=== PATIENT | female | born 1960 | race Native Hawaiian/Other Pacific Islander ===

== ENCOUNTER → 2017-03-04 | Outpatient (CLI) | payer OTHER ==
--- NOTE | 2017-03-05 10:19 | MM ---
Reason for exam: screening (asymptomatic). Last mammogram was performed 1 year ago. History: Patient is postmenopausal. Physical Findings: A clinical breast exam by your physician is recommended on an annual basis and results should be correlated with mammographic findings. MG Screening Mammo w CAD Bilateral CC and MLO view(s) were taken. Prior study comparison: February 27, 2016, bilateral MG screening mammo w CAD. February 21, 2015, bilateral MG screening mammo w CAD. There are scattered fibroglandular densities. No suspicious abnormality. No significant changes when compared with prior studies. ASSESSMENT: Negative, BI-RAD 1 RECOMMENDATION: Routine screening mammogram of both breasts in 1 year.
== END | disposition home or self-care (01) ==
LOC: RADMAMWWP 16:39
PROVIDERS: ATTEND Family Medicine
DX: Z12.31 Encounter for screening mammogram for malignant neoplasm of breast (principal)

== ENCOUNTER → 2018-04-22 | Outpatient (CLI) | payer OTHER ==
--- NOTE | 2018-04-22 16:33 | US ---
EXAMINATION TYPE: US axilla RT DATE OF EXAM: 04/22/2018 COMPARISON: NONE CLINICAL HISTORY: R59.0 Enlarged Lymph Nodes. Pt states palpable lump right axilla that has decreased in size since taking antibiotics x 10 days No abnormality could be appreciated within right axilla where pt feels palpable IMPRESSION: 1. Negative ultrasound at the palpable abnormality. Clinical management would be recommended.
== END ==
LOC: RADUSWWP 11:12
PROVIDERS: ATTEND Family Medicine
DX: R59.0 Localized enlarged lymph nodes (principal)

== ENCOUNTER → 2019-08-11 | Outpatient (CLI) | payer OTHER ==
--- NOTE | 2019-08-14 13:12 | MM ---
Reason for exam: screening (asymptomatic). Last mammogram was performed 2 years and 5 months ago. History: Patient is postmenopausal. Physical Findings: A clinical breast exam by your physician is recommended on an annual basis and results should be correlated with mammographic findings. MG Screening Mammo w CAD Bilateral CC and MLO view(s) were taken. Prior study comparison: March 04, 2017, bilateral MG screening mammo w CAD. February 27, 2016, bilateral MG screening mammo w CAD. There are scattered fibroglandular densities. There is no discrete abnormality. No significant changes when compared with prior studies. ASSESSMENT: Negative, BI-RAD 1 RECOMMENDATION: Routine screening mammogram of both breasts in 1 year.
== END | disposition home or self-care (01) ==
LOC: RADMAMWWP 13:07
PROVIDERS: ATTEND Family Medicine
DX: Z12.31 Encounter for screening mammogram for malignant neoplasm of breast (principal)
CPT/HCPCS: 77067

== ENCOUNTER 2020-08-28 06:40 | Day surgery (SDC) | payer OTHER ==
[2020-08-27 08:43] VITALS: BMI 36.3
[~2020-08-28 06:40] MED LIST: LACTATED RINGERS 1,000 ML IV SCH; LIDOCAINE 1% (10MG/ML) FOR IV START INTRADERMA PRN
[2020-08-28 07:33] VITALS: RESP 16; TEMP 97
[2020-08-28 07:55] LABS: Glucose,Whole Blood 128 mg/dL (75-99)
[2020-08-28] MEDS ORDERED: PROPOFOL 10 MG/ML 20 ML VIAL IV ONE (08:15)
--- NOTE | 2020-08-28 08:30 | P.PCN ---
Date of Procedure: 08/28/20 Procedure(s) Performed: BRIEF HISTORY: Patient is a 60-year-old pleasant white female scheduled for an elective colonoscopy as a part of screening for colorectal neoplasia PROCEDURE PERFORMED: Colonoscopy. PREOPERATIVE DIAGNOSIS: Screening for colon cancer. IV sedation per Anesthesia. PROCEDURE: After informed consent was obtained, the patient, was brought into the endoscopy unit. IV sedation was administered by Anesthesia under continuous monitoring. Digital rectal examination was normal. Initially the Olympus CF-160 flexible video colonoscope was then inserted in the rectum, gradually advanced into the cecum without any difficulty. Careful examination was performed as the scope was gradually being withdrawn. Ileocecal valve and the appendiceal orifice were visualized and appeared normal. Prep was excellent. Mucosa of the cecum, ascending colon, transverse colon, descending colon, sigmoid colon, and rectum appeared normal. Retroflexion was performed in the rectum and no lesions were seen. The patient tolerated the procedure well. IMPRESSION: Normal-appearing colon from rectum to cecum with no evidence of colorectal neoplasia.. RECOMMENDATIONS: Findings of this examination were discussed with the patient as well as her family. She was advised to have a repeat screening colonoscopy in 10 years
[2020-08-28 08:51] VITALS: BP 130/84; PULSE 63
== END 2020-08-28 09:07 | disposition home or self-care (01) ==
LOC: ORWHC2ENDO 06:40
PROVIDERS: ATTEND Internal Medicine Gastroenterology
DX: Z12.11 Encounter for screening for malignant neoplasm of colon (principal); I10 Essential (primary) hypertension; E78.5 Hyperlipidemia, unspecified; E11.9 Type 2 diabetes mellitus without complications; F41.9 Anxiety disorder, unspecified; Z79.899 Other long term (current) drug therapy; Z79.4 Long term (current) use of insulin; Z88.0 Allergy status to penicillin; Z88.2 Allergy status to sulfonamides; Z79.82 Long term (current) use of aspirin; Z98.890 Other specified postprocedural states; Z90.49 Acquired absence of other specified parts of digestive tract
CPT/HCPCS: J2704; G0121; 45378

== ENCOUNTER → 2021-03-20 | Outpatient (CLI) | payer OTHER ==
--- NOTE | 2021-03-24 11:00 | MM ---
Reason for exam: screening (asymptomatic). Last mammogram was performed 1 year and 7 months ago. History: Patient is postmenopausal. Physical Findings: A clinical breast exam by your physician is recommended on an annual basis and results should be correlated with mammographic findings. MG Screening Mammo w CAD Bilateral CC and MLO view(s) were taken. Prior study comparison: August 11, 2019, bilateral MG screening mammo w CAD. March 04, 2017, bilateral MG screening mammo w CAD. February 27, 2016, bilateral MG screening mammo w CAD. There are scattered fibroglandular densities. No significant changes when compared with prior studies. ASSESSMENT: Benign, BI-RAD 2 RECOMMENDATION: Routine screening mammogram of both breasts in 1 year.
== END | disposition home or self-care (01) ==
LOC: RADMAMWWP 14:35
PROVIDERS: ATTEND Family Medicine
DX: Z12.31 Encounter for screening mammogram for malignant neoplasm of breast (principal)
CPT/HCPCS: 77067

== ENCOUNTER → 2023-07-23 | Outpatient (CLI) | payer OTHER ==
--- NOTE | 2023-07-26 08:59 | MM ---
Reason for Exam: Screening (asymptomatic). Last mammogram was performed 2 year(s) and 5 month(s) ago. Patient History: Menarche at age 8. First Full-Term at age 28. Postmenopausal. Risk Values: Judith 5 year model risk: 2.0%. NCI Lifetime model risk: 7.9%. Prior Study Comparison: 03/04/2017 Bilateral Screening Mammogram, [facility]. 08/11/2019 Bilateral Screening Mammogram, [facility]. 03/20/2021 Bilateral Screening Mammogram, [facility]. Tissue Density: There are scattered fibroglandular densities. Findings: Analyzed By CAD. Grouped calcifications in the posterior upper inner left breast. No architectural distortion or dominant mass. Overall Assessment: Incomplete: need additional imaging evaluation, BI-RAD 0 Management: Special View Mammogram of the left breast. . Patient should continue monthly self-breast exams. A clinical breast exam by your physician is recommended on an annual basis. This exam should not preclude additional follow-up of suspicious palpable abnormalities. Note on Judith scores and lifetime risk: 1. A Judith score greater than 3% is considered moderate risk. If this is the case, consider specialist referral to assess eligibility for a risk reducing agent. 2. If overall lifetime risk for the development of breast cancer is 20% or higher, the patient may qualify for future screening with alternating mammogram and breast MRI. Electronically signed and approved by: Blair Trujillo M.D. Radiologis
== END | disposition home or self-care (01) ==
LOC: RADMAMWWP 14:01
PROVIDERS: ATTEND Family Medicine
DX: Z12.31 Encounter for screening mammogram for malignant neoplasm of breast (principal); Z78.0 Asymptomatic menopausal state
CPT/HCPCS: 77067

== ENCOUNTER → 2023-07-30 | Outpatient (CLI) | payer OTHER ==
--- NOTE | 2023-07-30 10:21 | MM ---
Reason for Exam: Follow-up at short interval from prior study. Last screening mammogram was performed less than 1 month ago. Patient History: Menarche at age 8. First Full-Term at age 28. Postmenopausal. Risk Values: Judith 5 year model risk: 2.0%. NCI Lifetime model risk: 7.9%. Prior Study Comparison: 08/11/2019 Bilateral Screening Mammogram, [facility]. 03/20/2021 Bilateral Screening Mammogram, [facility]. 07/23/2023 Bilateral MG screening mammo w CAD, [facility]. Tissue Density: Left: There are scattered fibroglandular densities. Findings: Analyzed By CAD. Benign coarse and punctate calcifications noted left breast. No suspicious clusters seen. Overall Assessment: Benign, BI-RAD 2 Management: Screening Mammogram of both breasts in 1 year. . Results were given to the patient verbally at the time of exam. Patient should continue monthly self-breast exams. A clinical breast exam by your physician is recommended on an annual basis. This exam should not preclude additional follow-up of suspicious palpable abnormalities. Note on Judith scores and lifetime risk: 1. A Judith score greater than 3% is considered moderate risk. If this is the case, consider specialist referral to assess eligibility for a risk reducing agent. 2. If overall lifetime risk for the development of breast cancer is 20% or higher, the patient may qualify for future screening with alternating mammogram and breast MRI. Electronically signed and approved by: Jose Alejandro Jolley M.D. Radiologis
== END | disposition home or self-care (01) ==
LOC: RADMAMWWP 09:43
PROVIDERS: ATTEND Family Medicine
DX: R92.8 Other abnormal and inconclusive findings on diagnostic imaging of breast (principal); Z78.0 Asymptomatic menopausal state
CPT/HCPCS: 77065; G0279; 77061

== ENCOUNTER 2023-08-28 11:44 | Emergency (ER) | payer OTHER ==
--- NOTE | 2023-08-28 12:16 | ED ---
General Adult HPI - General Chief complaint: Extremity Injury, Upper Stated complaint: Hand injury Time Seen by Provider: 08/28/23 11:59 Source: patient, RN notes reviewed Mode of arrival: ambulatory Limitations: no limitations - History of Present Illness Initial comments: 63-year-old female presents to the emergency department for evaluation of left h and injury. Patient states that she was feeding her chickens when she slipped in the mud causing her to fall onto her outstretched left hand. She reports pain to the third and fourth digits of the left hand with pain at the wrist as well. She states that she fell backwards onto her bottom. She denies any other injury, back pain. She has been ambulating without limitation. Denies head injury, blood thinners. - Related Data Home Medications Medication Instructions Recorded Confirmed Albuterol Inhaler [Ventolin 2 puff INHALATION Q4HR PRN 10/29/13 08/28/20 Inhaler] PARoxetine HCL [Paxil] 20 mg PO DAILY 10/29/13 08/27/20 Simvastatin [Zocor] 40 mg PO HS 10/29/13 08/27/20 lisinopriL [Zestril] 20 mg PO DAILY 10/29/13 08/27/20 Aspirin [Adult Low Dose Aspirin EC] 81 mg PO DIRECTED 08/27/20 08/27/20 Ergocalciferol (Vitamin D2) 50 mcg PO DAILY 08/27/20 08/27/20 [Vitamin D2 (2000 Iu)] Insulin NPH/Reg Insulin 70/30 25 unit SQ W/SUPPER 08/27/20 08/27/20 [humuLIN 70/30 VIAL] Insulin NPH/Reg Insulin 70/30 60 unit SQ W/BRKFST 08/27/20 08/27/20 [humuLIN 70/30 VIAL] Montelukast Sodium [Singulair] 10 mg PO HS 08/27/20 08/27/20 Pioglitazone [Actos] 15 mg PO DAILY 08/27/20 08/27/20 metFORMIN HCL [Glucophage] 500 mg PO W/LUNCH 08/27/20 08/27/20 Allergies Allergy/AdvReac Type Severity Reaction Status Date / Time Penicillins Allergy Rash/Hives Verified 08/28/23 11:58 Sulfa (Sulfonamide Allergy Anaphylaxis Verified 08/28/23 11:58 Antibiotics) Review of Systems ROS Statement: Those systems with pertinent positive or pertinent negative responses have been documented in the HPI. ROS Other: All systems not noted in ROS Statement are negative. Past Medical History Past Medical History: Diabetes Mellitus, Hyperlipidemia, Hypertension History of Any Multi-Drug Resistant Organisms: None Reported Past Surgical History: Section, Cholecystectomy Additional Past Surgical History / Comment(s): colonoscopy, biopsy of lymph node Past Anesthesia/Blood Transfusion Reactions: No Reported Reaction Past Psychological History: Anxiety Smoking Status: Never smoker Past Alcohol Use History: None Reported Past Drug Use History: None Reported - Past Family History Mother Family Medical History: No Reported History General Exam Limitations: no limitations General appearance: alert, in no apparent distress Head exam: Present: atraumatic, normocephalic, normal inspection Eye exam: Present: normal appearance, PERRL, EOMI. Absent: scleral icterus, conjunctival injection, periorbital swelling Neck exam: Present: normal inspection. Absent: tenderness, meningismus, lymphadenopathy Respiratory exam: Present: normal lung sounds bilaterally. Absent: respiratory distress, wheezes, rales, rhonchi, stridor Cardiovascular Exam: Present: regular rate, normal rhythm, normal heart sounds. Absent: systolic murmur, diastolic murmur, rubs, gallop, clicks Extremities exam: Present: tenderness, normal capillary refill, other (radial pulses 2+, ecchymosis to left 2nd and 3rd digits of the hand). Absent: full ROM Neurological exam: Present: alert, oriented X3 Psychiatric exam: Present: normal affect, normal mood Skin exam: Present: warm, dry, intact, other (Ecchymosis to volar aspect of the second and third digits of the left hand.). Absent: normal color Course Vital Signs 08/28/23 08/28/23 11:53 13:10 Temperature 97.6 F 98.2 F Pulse Rate 78 74 Respiratory 18 18 Rate Blood Pressure 174/88 166/84 O2 Sat by Pulse 96 Oximetry Procedures - Orthopedic Splinting/Casting Injury #1 Side: left Upper Extremity Immobilizer: volar splint Medical Decision Making - Medical Decision Making Was pt. sent in by a medical professional or institution (, PA, MANAGER BUSINESS INFORMATION, urgent care, hospital, or retirement...) When possible be specific @ -No Did you speak to anyone other than the patient for history (EMS, parent, family, police, friend...)? What history was obtained from this source @ -No Did you review nursing and triage notes (agree or disagree)? Why? @ -I reviewed and agree with nursing and triage notes Were old charts reviewed (outside hosp., previous admission, EMS record, old EKG, old radiological studies, urgent care reports/EKG's, retirement records)? Report findings @ -No old charts were reviewed Differential Diagnosis (chest pain, altered mental status, abdominal pain women, abdominal pain men, vaginal bleeding, weakness, fever, dyspnea, syncope, headache, dizziness, GI bleed, back pain, seizure, CVA, palpatations, mental health, musculoskeletal)? @ -Differential Musculoskeletal Muscular strain, contusion, ligament sprain, fracture, arthritis, septic arthritis, bursitis, cellulitis, muscle spasm, nerve compression, DVT, arterial occlusion, herpes zoster, electrolyte abnormality, tumor.... This is not meant to be in all inclusive list EKG interpreted by me (3pts min.). @ -None X-rays interpreted by me (1pt min.). @ -X-ray of the left hand and wrist show oblique lucency of the shaft of the third middle phalanx, widening of the scapholunate interval CT interpreted by me (1pt min.). @ -None done U/S interpreted by me (1pt. min.). @ -None done What testing was considered but not performed or refused? (CT, X-rays, U/S, labs)? Why? @ -None What meds were considered but not given or refused? Why? @ -None Did you discuss the management of the patient with other professionals (professionals i.e. , PA, MANAGER BUSINESS INFORMATION, lab, RT, psych nurse, social work supervisor, travel physical therapist, teacher, chief security and safety officer, corrections caseworker)? Give summary @ -No Was smoking cessation discussed for >3mins.? @ -No Was critical care preformed (if so, how long)? @ -No Were there social determinants of health that impacted care today? How? (Homelessness, low income, unemployed, alcoholism, drug addiction, transportation, low edu. Level, literacy, decrease access to med. care, skilled nursing, rehab)? @ -No Was there de-escalation of care discussed even if they declined (Discuss DNR or withdrawal of care, Hospice)? DNR status @ -No What co-morbidities impacted this encounter? (DM, HTN, Smoking, COPD, CAD, Cancer, CVA, ARF, Chemo, Hep., AIDS, mental health diagnosis, sleep apnea, morbid obesity)? @ -None Was patient admitted / discharged? Hospital course, mention meds given and rou te, prescriptions, significant lab abnormalities, going to OR and other pertinent info. @ -Discharged. Patient presented to the emergency department for evaluation of left wrist and hand injury from a fall. X-rays obtained which show a lucency to the shaft of the third middle phalanx and widening of the scapholunate interval at 2 mm. Patient placed in a volar splint to the fingertips. Neurovascular intact post splint. Advised to rest, ice, elevate and follow-up with orthopedics. Patient understanding agreeable with plan. Patient stable at time of discharge. Case discussed with Dr. Lee Undiagnosed new problem with uncertain prognosis? @ -No Drug Therapy requiring intensive monitoring for toxicity (Heparin, Nitro, Insulin, Cardizem)? @ -No Were any procedures done? @ -Splint Diagnosis/symptom? @ -Fracture of the third middle phalanx of the left hand Acute, or Chronic, or Acute on Chronic? @ -Acute Uncomplicated (without systemic symptoms) or Complicated (systemic symptoms)? @ -uncomplicated Side effects of treatment? @ -No Exacerbation, Progression, or Severe Exacerbation? @ -No Poses a threat to life or bodily function? How? (Chest pain, [place], [place], pneumonia, PE, COPD, DKA, ARF, appy, cholecystitis, CVA, Diverticulitis, Homicidal, Suicidal, threat to staff... and all critical care pts) @ -No Disposition Clinical Impression: Fracture of finger of left hand Disposition: HOME SELF-CARE Condition: Stable Instructions (If sedation given, give patient instructions): Finger Fracture (ED) Additional Instructions: Please follow-up with orthopedics. Rest, ice, elevate. Utilize Tylenol and Motrin for pain. Return to the emergency department for new or worsening symptoms. Is patient prescribed a controlled substance at d/c from ED?: No Referrals: Natalie Hidalgo MD [Primary Care Provider] - 1-2 days Chastity Leigh DO [Doctor of Osteopathic Medicine] - 1-2 days
[2023-08-28 12:17] VITALS: RESP 18
[2023-08-28] MEDS: ACETAMINOPHEN TAB 325 MG TAB PO STA (12:23)
[2023-08-28] MEDS: IBUPROFEN 600 MG TAB PO STA (12:23)
--- NOTE | 2023-08-28 12:29 | XR ---
EXAMINATION TYPE: XR wrist complete 4 views LT, XR hand complete 3 views LT DATE OF EXAM: 08/28/2023 COMPARISON: NONE HISTORY: 63-year-old female pain after fall FINDINGS: Left wrist: Borderline scapholunate interval at 2 mm. Otherwise, the radiocarpal and distal radioulnar joint as i n mid carpal compartment appear intact. No acute fracture, subluxation, dislocation. Hand: Osteopenia. There is an obliquely oriented lucency through the shaft of the third middle phalanx sugg esting an age indeterminate injury given the lack of overlying soft tissue swelling. Mild degenerativ e change first CMC joint. There is some soft tissue swelling along the dorsal aspect of the distal me tacarpals. No displaced fracture otherwise seen. IMPRESSION: 1. Wrist: Borderline widening of the scapholunate interval at 2 mm. Correlate for age indeterminate s capholunate ligament sprain. 2. Hand: Oblique lucency involving the shaft of the third middle phalanx. Correlate for any point ten derness and history of old fracture here given the lack of associated soft tissue swelling. Some dors al soft tissue swelling overlying the distal metacarpals.
[2023-08-28 13:19] VITALS: BP 166/84; PULSE 74; TEMP 98.2
== END 2023-08-28 13:13 | disposition home or self-care (01) ==
LOC: EC 11:44
DX: S62.603A Fracture of unspecified phalanx of left middle finger, initial encounter for closed fracture (principal); I10 Essential (primary) hypertension; E11.9 Type 2 diabetes mellitus without complications; E78.5 Hyperlipidemia, unspecified; F41.9 Anxiety disorder, unspecified; Z79.84 Long term (current) use of oral hypoglycemic drugs; Z79.4 Long term (current) use of insulin; Z79.82 Long term (current) use of aspirin; Z79.899 Other long term (current) drug therapy; Z88.0 Allergy status to penicillin; Z88.2 Allergy status to sulfonamides; Z90.49 Acquired absence of other specified parts of digestive tract; W01.0XXA Fall on same level from slipping, tripping and stumbling without subsequent striking against object, initial encounter
CPT/HCPCS: 29125; 99283

== ENCOUNTER → 2024-02-03 | Outpatient (CLI) | payer OTHER | END | disposition home or self-care (01) | LOC: LABPRL 12:00 | PROVIDERS: ATTEND Family Medicine | DX: I10 Essential (primary) hypertension (principal); E11.65 Type 2 diabetes mellitus with hyperglycemia | CPT/HCPCS: 80053; 80061; 83036; 84443 ==

== ENCOUNTER 2025-01-02 08:46 | Emergency (ER) | payer MEDICARE ==
--- NOTE | 2025-01-02 08:52 | ED ---
Recheck HPI <Stella Bang - Last Filed: 01/02/25 14:59> <Reji Arcos - Last Filed: 01/03/25 07:05> - General Stated Complaint: Low hemoglobin Time Seen by Provider: 01/02/25 08:48 - History of Present Illness Initial Comments: 64-year-old female with DM, hyperlipidemia, hypertension, anxiety here for abnormal labs. She was sent by PCP for hemoglobin of 6 on outpatient labs. Was being evaluated for extremity swelling and diarrhea yesterday. Labs were checked and she had a hemoglobin on 6 and was sent to the ED. She is not on any blood thinners. Denied fatigue, lightheadedness, dizziness, short of breath, chest pain, palpitations, recent prolonged travel, hematuria, dysuria, hematemesis, hematochezia, hemarthrosis, bruising, bleeding, nausea, vomiting, sweats. (Stella Bang) - Related Data Home Medications Medication Instructions Recorded Confirmed Albuterol Inhaler [Ventolin 2 puff INHALATION RT-Q4H PRN 10/29/13 01/02/25 Inhaler] PARoxetine HCL [Paxil] 20 mg PO DAILY 10/29/13 01/02/25 Simvastatin [Zocor] 40 mg PO HS 10/29/13 01/02/25 lisinopriL [Zestril] 20 mg PO DAILY 10/29/13 01/02/25 Insulin NPH/Reg Insulin 70/30 35 unit SQ W/SUPPER 08/27/20 01/02/25 [humuLIN 70/30 VIAL] Insulin NPH/Reg Insulin 70/30 65 unit SQ W/BRKFST 08/27/20 01/02/25 [humuLIN 70/30 VIAL] Montelukast Sodium [Singulair] 10 mg PO HS 08/27/20 01/02/25 metFORMIN HCL [Glucophage] 500 mg PO W/SUPPER 08/27/20 01/02/25 Acetaminophen-Codeine 300-30mg 1 tab PO Q6H PRN 01/02/25 01/02/25 [Tylenol w/codeine #3] metFORMIN HCL [Glucophage] 1,000 mg PO BID-W/MEALS 01/02/25 01/02/25 Allergies Allergy/AdvReac Type Severity Reaction Status Date / Time Penicillins Allergy Rash/Hives Verified 01/02/25 10:52 Sulfa (Sulfonamide Allergy Anaphylaxis Verified 01/02/25 10:52 Antibiotics) Review of Systems ROS Other: All systems not noted in ROS Statement are negative. <Stella Bang - Last Filed: 01/02/25 14:59> ROS Other: All systems not noted in ROS Statement are negative. <Reji Arcos Shante - Last Filed: 01/03/25 07:05> ROS Statement: Those systems with pertinent positive or pertinent negative responses have been documented in the HPI. Past Medical History Past Medical History: Diabetes Mellitus, Hyperlipidemia, Hypertension History of Any Multi-Drug Resistant Organisms: None Reported Past Surgical History: Section, Cholecystectomy Additional Past Surgical History / Comment(s): colonoscopy, biopsy of lymph node Past Anesthesia/Blood Transfusion Reactions: No Reported Reaction Past Psychological History: Anxiety Smoking Status: Never smoker Past Alcohol Use History: None Reported Past Drug Use History: None Reported - Past Family History Mother Family Medical History: No Reported History <Stella Bang - Last Filed: 01/02/25 14:59> General Exam <Stella Bang - Last Filed: 01/02/25 14:59> - General Exam Comments Initial Comments: Physical examination: Vital signs reviewed General: non toxic, no distress, appears at stated age, obese Head: atraumatic, normocephalic, symmetric Mouth: no lip lesion, mucus membranes moist Cardiovascular: S1S2 reg, 3 out of 6 holosystolic murmur best heard in the right ICS Lungs: CTA bilateral, no rhonchi, no rales, no accessory muscle use Abdominal: soft, nondistended, nontender to palpation, no guarding Ext: muscle strength 5 out of 5 in all 4 extremities grossly, no gross muscle atrophy, no contractures, positive dorsalis pedis pulse bilateral, bilateral lower extremity +2 pitting edema Neuro: no gross focal neuro deficits Psych: Alert and oriented x3, appropriate affect and mood (Stella Bang) Course <Stella Bang - Last Filed: 01/02/25 14:59> Vital Signs 01/02/25 01/02/25 01/02/25 08:52 09:10 10:32 Temperature 98.5 F 98.9 F 98.2 F Pulse Rate 101 H 88 90 Respiratory 18 16 16 Rate Blood Pressure 134/67 125/55 133/60 O2 Sat by Pulse 98 96 97 Oximetry 01/02/25 01/02/25 01/02/25 10:52 11:12 14:02 Temperature 98.8 F 98.3 F 98.6 F Pulse Rate 79 79 85 Respiratory 16 16 16 Rate Blood Pressure 130/65 137/66 129/62 O2 Sat by Pulse 98 98 97 Oximetry 01/02/25 15:14 Temperature 98.8 F Pulse Rate 80 Respiratory 16 Rate Blood Pressure 134/70 O2 Sat by Pulse 96 Oximetry - Reevaluation(s) Reevaluation #1: 01/02/25 10:41 Patient has no new symptoms or complaints. Stool occult blood sample obtained (Stella Bang) Medical Decision Making - Lab Data Result diagrams: 01/02/25 09:18 01/02/25 09:18 <Stella Bang - Last Filed: 01/02/25 14:59> - Lab Data Result diagrams: 01/02/25 09:18 01/02/25 09:18 <Reji Arcos - Last Filed: 01/03/25 07:05> - Medical Decision Making Was pt. sent in by a medical professional or institution ([facility]don[facility], ARCH[employer] INSTRUCTOR, urgent care, hospital, or long term...) When possible be specific @ -PCP Did you speak to anyone other than the patient for history (EMS, parent, family, police, friend...)? What history was obtained from this source @ -Spoke with Did you review nursing and triage notes (agree or disagree)? Why? @ -I reviewed and agree with nursing and triage notes Were old charts reviewed (outside hosp., previous admission, EMS record, old EKG, old radiological studies, urgent care reports/EKG's, long term records)? Report findings @ -No old charts were reviewed Differential Diagnosis? @ -Differential Bleed: Esophageal varices, aortoenteric fistula, Patricia-Moore, gastritis, peptic ulcer disease, diverticulosis, inflammatory bowel disease, hemorrhoids, fissure, colitis, malignancy, Meckel's diverticulum, anemia, high output heart failure this is not meant to be an all-inclusive list. EKG interpreted by me (3pts min.). @ -As above X-rays interpreted by me (1pt min.). @ -None done CT interpreted by me (1pt min.). @ -None done U/S interpreted by me (1pt. min.). @ -None done What testing was considered but not performed or refused? (CT, X-rays, U/S, labs)? Why? @ -None What meds were considered but not given or refused? Why? @ -None Did you discuss the management of the patient with other professionals (professionals i.e. , PA, ARCHERY INSTRUCTOR, lab, RT, psych nurse, addiction social worker, dumpster operator, teacher, escrow officer, spring encaser)? Give summary @ -Dr. Zavaleta, supervising physician Was smoking cessation discussed for >3mins.? @ -No Was critical care preformed (if so, how long)? @ -No Were there social determinants of health that impacted care today? How? (Homelessness, low income, unemployed, alcoholism, drug addiction, transportation, low edu. Level, literacy, decrease access to med. care, m[facility], rehab)? @ -No Was there de-escalation of care discussed even if they declined (Discuss DNR or withdrawal of care, Hospice)? DNR status @ -No What co-morbidities impacted this encounter? (DM, HTN, Smoking, COPD, CAD, Canc er, CVA, ARF, Chemo, Hep., AIDS, mental health diagnosis, sleep apnea, morbid obesity)? @ -None Was patient admitted / discharged? Hospital course, mention meds given and route, prescriptions, significant lab abnormalities, going to OR and other pertinent info. @ -Discharge. Hemoglobin 6.3 on CBC. 1 unit packed RBC with type and screen ordered. Chest x-ray showed pulmonary vascular congestion suggesting of CHF exacerbation. Stool occult blood could not be processed as patient had very minimal stool in rectal vault. Given 1 dose IV furosemide posttransfusion. Patient remained stable and had no worsening condition throughout her stay. She is discharged home and advised to limit fluid intake and follow-up with PCP. Undiagnosed new problem with uncertain prognosis? @ -[No] Drug Therapy requiring intensive monitoring for toxicity (Heparin, Nitro, Insulin, Cardizem)? @ -No Were any procedures done? @ -No Diagnosis/symptom? @ -Anemia, bilateral lower extremity edema Acute, or Chronic, or Acute on Chronic? @ -Acute Uncomplicated (without systemic symptoms) or Complicated (systemic symptoms)? @ -Uncomplicated Side effects of treatment? @ -No Exacerbation, Progression, or Severe Exacerbation? @ -No Poses a threat to life or bodily function? How? (Chest pain, [place], [place], pneumonia, PE, COPD, DKA, ARF, appy, cholecystitis, CVA, Diverticulitis, Homicidal, Suicidal, threat to staff... and all critical care pts) @ -No (Stella Bang) I personally saw the patient and performed the critical portion of the service. I discussed the patient care with the resident. I directed management, care planning and final disposition of the patient. This includes, but not limited to, review of all lab work, radiological studies, EKG's, consultations, vital signs, and nursing notes. EKG interpreted by me (3pts min.) @ [as above] X-Rays interpreted by me (1 pt min.) @ [none] CT interpreted by me ( 1pt min.) @ [none] U/S interpreted by me (1 pt min.) @ [none] Critical care time of [0] minutes excluding separately billable procedures was spent in conjunction with critical care activities provided by the Resident and Attending simultaneously. I was present during [no procedures] for all critical portions of the procedure and as immediately available to furnish service during the entire procedure. (Reji Arcos) - Lab Data Lab Results 01/02/25 01/02/25 01/02/25 Range/Units 09:16 09:16 09:18 WBC 5.88 (4.50-10.00) 10*3/uL RBC 2.91 L (4.10-5.20) 10*6/uL Hgb 6.3 L* (12.0-15.0) g/dL Hct 21.6 L (37.2-46.3) % MCV 74.2 L (80.0-97.0) fL MCH 21.6 L (27.0-32.0) pg MCHC 29.2 L (32.0-37.0) g/dL Plt Count 89 L (140-440) 10*3/uL Immature Gran % (Auto) 0.3 % Neutrophils % 73.5 % Lymphocytes % 14.3 % Monocytes % 9.0 % Eosinophils % 2.2 % Basophils % 0.7 % Immature Gran # 0.02 (0.00-0.04) 10*3/uL Neutrophils # 4.32 (1.80-7.70) 10*3/uL Lymphocytes # 0.84 L (0.90-5.00) 10*3/uL Monocytes # 0.53 (0.20-1.00) 10*3/uL Eosinophils # 0.13 (0.04-0.35) 10*3/uL Basophils # 0.04 (0.00-0.10) 10*3/uL Immature Plt Fraction 8.1 H (1.1-6.1) % PT (10.0-12.5) sec INR (<1.2) APTT (22.0-30.0) sec Sodium (137-145) mmol/L Potassium (3.5-5.1) mmol/L Chloride (98-107) mmol/L Carbon Dioxide (22-30) mmol/L Anion Gap mmol/L BUN (7-17) mg/dL Creatinine (0.52-1.04) mg/dL Est GFR (CKD-EPI)AfAm (>60 ml/min/1.73 sqM) Est GFR (CKD-EPI)NonAf (>60 ml/min/1.73 sqM) Glucose (74-99) mg/dL Calcium (8.4-10.2) mg/dL NT-Pro-B Natriuret Pep pg/mL Blood Type A Positive Blood Type Confirm A Positive Blood Type Recheck No Previous Record Bld Type Recheck Status CABO Indicated Antibody Screen NEGATIVE Crossmatch See Detail Spec Expiration Date 01/05/2025 - 231001/02/25 01/02/25 Range/Units 09:18 09:18 WBC (4.50-10.00) 10*3/uL RBC (4.10-5.20) 10*6/uL Hgb (12.0-15.0) g/dL Hct (37.2-46.3) % MCV (80.0-97.0) fL MCH (27.0-32.0) pg MCHC (32.0-37.0) g/dL Plt Count (140-440) 10*3/uL Immature Gran % (Auto) % Neutrophils % % Lymphocytes % % Monocytes % % Eosinophils % % Basophils % % Immature Gran # (0.00-0.04) 10*3/uL Neutrophils # (1.80-7.70) 10*3/uL Lymphocytes # (0.90-5.00) 10*3/uL Monocytes # (0.20-1.00) 10*3/uL Eosinophils # (0.04-0.35) 10*3/uL Basophils # (0.00-0.10) 10*3/uL Immature Plt Fraction (1.1-6.1) % PT 11.3 (10.0-12.5) sec INR 1.0 (<1.2) APTT 22.3 (22.0-30.0) sec Sodium 141 (137-145) mmol/L Potassium 4.4 (3.5-5.1) mmol/L Chloride 111 H (98-107) mmol/L Carbon Dioxide 21 L (22-30) mmol/L Anion Gap 9 mmol/L BUN 12 (7-17) mg/dL Creatinine 0.55 (0.52-1.04) mg/dL Est GFR (CKD-EPI)AfAm >90 (>60 ml/min/1.73 sqM) Est GFR (CKD-EPI)NonAf >90 (>60 ml/min/1.73 sqM) Glucose 155 H (74-99) mg/dL Calcium 8.6 (8.4-10.2) mg/dL NT-Pro-B Natriuret Pep 173 pg/mL Blood Type Blood Type Confirm Blood Type Recheck Bld Type Recheck Status Antibody Screen Crossmatch Spec Expiration Date - EKG Data EKG Comments: Sinus rhythm with a rate of 84 bpm, [place] interval 132 MS, QTc 423 MS, low voltage, no ST-T changes (Stella Bang) Disposition Is patient prescribed a controlled substance at d/c from ED?: No Time of Disposition: 14:59 <Stella Bang - Last Filed: 01/02/25 14:59> <Reji Arcos - Last Filed: 01/03/25 07:05> Clinical Impression: Anemia, Bilateral lower extremity edema Disposition: HOME SELF-CARE Condition: Good Instructions (If sedation given, give patient instructions): Leg Edema (ED) Additional Instructions: Follow-up with PCP in 1 to 2 days. Advised to limit fluid intake until evaluated Referrals: Natalie Hidalgo MD [Primary Care Provider] - 1-2 days
[2025-01-02 09:14] VITALS: RESP 16
[2025-01-02 09:26] LABS: Basophils # (A) 0.04 10*3/uL (0.00-0.10); Basophils % (A) 0.7 %; Eosinophils # (A) 0.13 10*3/uL (0.04-0.35); Eosinophils % (A) 2.2 %; HCT 21.6 % (37.2-46.3); Immature Platelet Fraction 8.1 % (1.1-6.1); Lymphocytes # (A) 0.84 10*3/uL (0.90-5.00); Lymphocytes % (A) 14.3 %; MCH 21.6 pg (27.0-32.0); MCHC 29.2 g/dL (32.0-37.0); MCV 74.2 fL (80.0-97.0); Monocytes # (A) 0.53 10*3/uL (0.20-1.00); Monocytes % (A) 9.0 %; Neutrophils # (A) 4.32 10*3/uL (1.80-7.70); Neutrophils % (A) 73.5 %; RBC 2.91 10*6/uL (4.10-5.20); RDW 20.6 % (11.5-14.5); WBC 5.88 10*3/uL (4.50-10.00)
[2025-01-02 09:29] LABS: HGB 6.3 g/dL (12.0-15.0); Platelet Count 89 10*3/uL (140-440)
[2025-01-02 09:34] LABS: INR 1.0 (<1.2); Partial Thromboplastin Time 22.3 sec (22.0-30.0); Prothrombin Time 11.3 sec (10.0-12.5)
[2025-01-02 09:42] LABS: African American GFR (CKD) >90 (>60 ml/min/1.73 sqM); Anion Gap 9 mmol/L; Blood Urea Nitrogen 12 mg/dL (7-17); Calcium 8.6 mg/dL (8.4-10.2); Carbon Dioxide 21 mmol/L (22-30); Chloride 111 mmol/L (98-107); Glucose 155 mg/dL (74-99); Non-African American GFR(CKD) >90 (>60 ml/min/1.73 sqM); Potassium 4.4 mmol/L (3.5-5.1); Sodium 141 mmol/L (137-145)
[2025-01-02 09:51] LABS: NT-Pro-B-Type Natriuretic Pept 173 pg/mL
--- NOTE | 2025-01-02 10:00 | XR ---
EXAMINATION TYPE: XR chest 2V DATE OF EXAM: 01/02/2025 9:36 AM COMPARISON: Chest radiographs from 10/29/2013 CLINICAL INDICATION: Female, 64 years old with history of bilateral lower extremity edema; [facility] TECHNIQUE: XR chest 2V Frontal and lateral views of the chest. FINDINGS: Lungs/Pleura: There is no evidence of pleural effusion, focal consolidation, or pneumothorax. Pulmonary vascularity: Mild pulmonary vascular congestion. Heart/mediastinum: Cardiomediastinal silhouette is enlarged. Musculoskeletal: No acute osseous pathology. IMPRESSION: Cardiomegaly and mild pulmonary vascular congestion. Correlate with BNP for congestive heart failure. [facility], , 01/02/2025 9:57 AM
[2025-01-02] MEDS: FUROSEMIDE 10 MG/ML 4 ML VIAL IV ONE (14:06)
[2025-01-02 15:20] VITALS: BP 134/70; PULSE 80; TEMP 98.8
== END 2025-01-02 15:20 | disposition home or self-care (01) ==
LOC: EC 08:46
DX: D64.9 Anemia, unspecified (principal); R60.0 Localized edema; I11.0 Hypertensive heart disease with heart failure; E78.5 Hyperlipidemia, unspecified; Z88.0 Allergy status to penicillin; Z88.2 Allergy status to sulfonamides
CPT/HCPCS: 36415; 93005; 86900; 86901; 83880; 80048; 85025; 85610; 85730; 86850; 86920; 71046; 99284; 96374; 36430; P9016; J1938

== ENCOUNTER 2025-01-11 11:06 | Emergency (ER) | payer MEDICARE ==
--- NOTE | 2025-01-11 11:36 | ED ---
Abdominal Pain HPI - General Chief Complaint: Abdominal Pain Stated Complaint: Abd pain Time Seen by Provider: 01/11/25 11:08 Source: patient, EMS, RN notes reviewed Mode of arrival: EMS Limitations: no limitations - History of Present Illness Initial Comments: This is a 64-year-old female who presents to the emergency department for abdominal pain. Patient reports diffuse abdominal pain beginning this morning. She did have some nausea and vomiting initially which has since resolved. Also states that she has had several bouts of diarrhea. The pain has since started to improve, but is still present. Pain is worse in the upper abdomen, but state s that it is still present everywhere. She was evaluated here last week for low hemoglobin and required a blood transfusion. She has since started taking an iron supplement. Denies any chest pain or shortness of breath. MD Complaint: abdominal pain - Related Data Home Medications Medication Instructions Recorded Confirmed Albuterol Inhaler [Ventolin 2 puff INHALATION RT-Q4H PRN 10/29/13 01/11/25 Inhaler] PARoxetine HCL [Paxil] 20 mg PO DAILY 10/29/13 01/11/25 Simvastatin [Zocor] 40 mg PO HS 10/29/13 01/11/25 lisinopriL [Zestril] 20 mg PO DAILY 10/29/13 01/11/25 Insulin NPH/Reg Insulin 70/30 32 unit SQ W/SUPPER 08/27/20 01/11/25 [humuLIN 70/30 VIAL] Insulin NPH/Reg Insulin 70/30 60 unit SQ W/BRKFST 08/27/20 01/11/25 [humuLIN 70/30 VIAL] Montelukast Sodium [Singulair] 10 mg PO HS 08/27/20 01/11/25 metFORMIN HCL [Glucophage] 500 mg PO W/SUPPER 08/27/20 01/11/25 Acetaminophen-Codeine 300-30mg 1 tab PO Q6H PRN 01/02/25 01/11/25 [Tylenol w/codeine #3] metFORMIN HCL [Glucophage] 1,000 mg PO BID-W/MEALS 01/02/25 01/11/25 Cetirizine HCl [Zyrtec] 10 mg PO HS 01/11/25 01/11/25 Ferrous Sulfate [Feosol] 325 mg PO DAILY 01/11/25 01/11/25 Omeprazole 40 mg PO BID 01/11/25 01/11/25 Previous Rx's Medication Instructions Recorded Dicyclomine [Bentyl] 20 mg PO QID PRN #30 tablet 01/11/25 cefuroxime axetiL [Ceftin] 500 mg PO BID 7 Days #14 tab 01/11/25 Allergies Allergy/AdvReac Type Severity Reaction Status Date / Time Penicillins Allergy Rash/Hives Verified 01/11/25 13:42 Sulfa (Sulfonamide Allergy Anaphylaxis Verified 01/11/25 13:42 Antibiotics) Review of Systems ROS Statement: Those systems with pertinent positive or pertinent negative responses have been documented in the HPI. ROS Other: All systems not noted in ROS Statement are negative. Past Medical History Past Medical History: Diabetes Mellitus, Hyperlipidemia, Hypertension History of Any Multi-Drug Resistant Organisms: None Reported Past Surgical History: Section, Cholecystectomy Additional Past Surgical History / Comment(s): colonoscopy, biopsy of lymph node Past Anesthesia/Blood Transfusion Reactions: No Reported Reaction Past Psychological History: Anxiety Smoking Status: Never smoker Past Alcohol Use History: None Reported Past Drug Use History: None Reported - Past Family History Mother Family Medical History: No Reported History General Exam Limitations: no limitations General appearance: alert, in no apparent distress Head exam: Present: atraumatic, normocephalic, normal inspection Respiratory exam: Present: normal lung sounds bilaterally. Absent: respiratory distress, wheezes, rales, rhonchi, stridor Cardiovascular Exam: Present: regular rate, normal rhythm GI/Abdominal exam: Present: soft, tenderness (Diffuse). Absent: distended Neurological exam: Present: alert, oriented X3, CN II-XII intact Psychiatric exam: Present: normal affect, normal mood Skin exam: Present: warm, dry, intact, normal color. Absent: rash Course Vital Signs 01/11/25 01/11/25 01/11/25 11:09 12:04 15:47 Temperature 98.0 F 98.3 F Pulse Rate 82 81 82 Respiratory 18 20 19 Rate Blood Pressure 127/57 130/63 110/56 O2 Sat by Pulse 98 95 97 Oximetry 01/11/25 16:50 Temperature 99.0 F Pulse Rate 80 Respiratory 19 Rate Blood Pressure 107/56 O2 Sat by Pulse 95 Oximetry Medical Decision Making - Medical Decision Making This is a 64-year-old female who presents to the emergency department for abdominal pain. Was pt. sent in by a medical professional or institution? @ -No Did you speak to anyone other than the patient for history? @ -No Did you review nursing and triage notes? @ -Yes, and I agree, it is accurate with regards to the patient's symptoms. Were old charts reviewed? @ -No Differential Diagnosis? @ -Differential Abdominal Pain Women: Appendicitis, Cholecystitis, diverticulosis, ischemic bowel, pancreatitis, hepatitis, UTI, gastroenteritis, AAA, incarcerated hernia, bowel obstruction, constipation, inflammatory bowel, hepatitis, peptic ulcer disease, splenic infarction, perforated viscus, vulvitis, ovarian torsion, PID, kidney stone, placenta abruption, this is not meant to be an all-inclusive list EKG interpreted by me (3pts min.)? @ -EKG interpreted by me demonstrating the following: Sinus rhythm. Ventricular rate 81 bpm, MO interval 150 ms, QRS duration 81 ms, QTc 433 ms. X-rays interpreted by me (1pt min.)? @ -KUB x-ray obtained. My interpretation identifies no dilation of the bowel loops. CT interpreted by me (1pt min.)? @ -Not obtained U/S interpreted by me (1pt. min.)? @ -Not obtained What testing was considered but not performed? (CT, X-rays, U/S, labs)? Why? @ -None What meds were considered but not given? Why? @ -None Did you discuss the management of the patient with other professionals? @ -No Did you reconcile home meds? @ -No Was smoking cessation discussed for >3mins.? @ -No Was critical care preformed (if so, how long)? @ -No Were there social determinants of health that impacted care today? How? (Homelessness, low income, unemployed, alcoholism, drug addiction, transportation, low edu. Level, literacy, decrease access to med. care, fpc, rehab)? @ -No Was there de-escalation of care discussed even if they declined? (Discuss DNR or withdrawal of care, Hospice)? @ -No What co-morbidities impacted this encounter? (DM, HTN, Smoking, COPD, CAD, Cancer, CVA, Hep., AIDS, mental health diagnosis, sleep apnea, morbid obesity)? @ -DM, HLD, HTN Was patient admitted / discharged? @ -Discharged. Lab work demonstrates a hemoglobin of 7.4, which is improved when compared with the last several days. Magnesium slightly low at 1.4. Lactic acid mildly elevated at 2.1. 1 L of IV fluids administered along with 800 mg of magnesium oxide. Urinalysis consistent with infection and urine was sent for culture. KUB x-ray demonstrates findings suggestive of diarrheal state/enteritis without any other acute process. Symptoms well-controlled in the emergency department and she was tolerating oral intake. Pain had essentially resolved with little to no intervention. 2 g of ceftriaxone administered in the emergency department. Cefuroxime prescribed for further management of infection and Bentyl was prescribed for any additional abdominal pain. Also advised Tylenol as needed. Patient discharged home in stable condition and advised to follow-up with her primary care provider. Case discussed with ED attending Dr. Arcos. Return precautions reviewed in depth, the patient is instructed to return to the emergency department with any new, worsening, or concerning symptoms. Patient verbalized understanding. Undiagnosed new problem with uncertain prognosis? @ -None Drug Therapy requiring intensive monitoring for toxicity (Heparin, Nitro, Insulin, Cardizem)? @ -None Were any procedures done? @ -None Diagnosis/symptom? @ -Abdominal pain, UTI Acute, or Chronic, or Acute on Chronic? @ -Acute Uncomplicated (without systemic symptoms) or Complicated (systemic symptoms)? @ -Uncomplicated Side effects of treatment? @ -None Exacerbation, Progression, or Severe Exacerbation] @ -Not applicable Poses a threat to life or bodily function? @ -No - Lab Data Result diagrams: 01/11/25 12:00 01/11/25 12:00 Lab Results 01/11/25 01/11/25 01/11/25 Range/Units 12:00 12:00 12:00 WBC 6.24 (4.50-10.00) 10*3/uL RBC 3.33 L (4.10-5.20) 10*6/uL Hgb 7.4 L (12.0-15.0) g/dL Hct 25.0 L (37.2-46.3) % MCV 75.1 L (80.0-97.0) fL MCH 22.2 L (27.0-32.0) pg MCHC 29.6 L (32.0-37.0) g/dL Plt Count 90 L (140-440) 10*3/uL Immature Gran % (Auto) 0.3 % Neutrophils % 88.3 % Lymphocytes % 6.6 % Monocytes % 4.3 % Eosinophils % 0.2 % Basophils % 0.3 % Immature Gran # 0.02 (0.00-0.04) 10*3/uL Neutrophils # 5.51 (1.80-7.70) 10*3/uL Lymphocytes # 0.41 L (0.90-5.00) 10*3/uL Monocytes # 0.27 (0.20-1.00) 10*3/uL Eosinophils # 0.01 L (0.04-0.35) 10*3/uL Basophils # 0.02 (0.00-0.10) 10*3/uL Manual Slide Review Performed Immature Plt Fraction 7.5 H (1.1-6.1) % Anisocytosis (manual) Present Sodium 138 (137-145) mmol/L Potassium 4.0 (3.5-5.1) mmol/L Chloride 107 (98-107) mmol/L Carbon Dioxide 25 (22-30) mmol/L Anion Gap 6 mmol/L BUN 7 (7-17) mg/dL Creatinine 0.48 L (0.52-1.04) mg/dL Est GFR (CKD-EPI)AfAm >90 (>60 ml/min/1.73 sqM) Est GFR (CKD-EPI)NonAf >90 (>60 ml/min/1.73 sqM) Glucose 117 H (74-99) mg/dL Lactic Ac Sepsis Rflx Plasma Lactic Acid Brooks 2.1 H* (0.7-2.0) mmol/L Calcium 8.1 L (8.4-10.2) mg/dL Magnesium 1.4 L (1.6-2.3) mg/dL Total Bilirubin 1.2 (0.2-1.3) mg/dL AST 45 H (14-36) U/L ALT 23 (4-34) U/L Alkaline Phosphatase 141 H (38-126) U/L Troponin I (0.000-0.034) ng/mL Total Protein 5.8 L (6.3-8.2) g/dL Albumin 3.0 L (3.5-5.0) g/dL Amylase 34 (30-110) U/L Lipase 151 (23-300) U/L Urine Color Urine Appearance (Clear) Urine pH (5.0-8.0) Ur Specific [place] (1.001-1.035) Urine Protein (Negative) Urine Glucose (UA) (Negative) Urine Ketones (Negative) Urine Blood (Negative) Urine Nitrite (Negative) Urine Bilirubin (Negative) Urine Urobilinogen (<2.0) mg/dL Ur Leukocyte Esterase (Negative) Urine RBC (0-5) /hpf Urine WBC (0-5) /hpf Ur Squamous Epith Cells (0-4) /hpf Urine Bacteria (None) /hpf Hyaline Casts (0-2) /lpf Urine Mucus (None) /hpf Blood Type Blood Type Recheck Bld Type Recheck Status Antibody Screen Spec Expiration Date 01/11/25 01/11/25 01/11/25 Range/Units 12:00 12:00 13:53 WBC (4.50-10.00) 10*3/uL RBC (4.10-5.20) 10*6/uL Hgb (12.0-15.0) g/dL Hct (37.2-46.3) % MCV (80.0-97.0) fL MCH (27.0-32.0) pg MCHC (32.0-37.0) g/dL Plt Count (140-440) 10*3/uL Immature Gran % (Auto) % Neutrophils % % Lymphocytes % % Monocytes % % Eosinophils % % Basophils % % Immature Gran # (0.00-0.04) 10*3/uL Neutrophils # (1.80-7.70) 10*3/uL Lymphocytes # (0.90-5.00) 10*3/uL Monocytes # (0.20-1.00) 10*3/uL Eosinophils # (0.04-0.35) 10*3/uL Basophils # (0.00-0.10) 10*3/uL Manual Slide Review Immature Plt Fraction (1.1-6.1) % Anisocytosis (manual) Sodium (137-145) mmol/L Potassium (3.5-5.1) mmol/L Chloride (98-107) mmol/L Carbon Dioxide (22-30) mmol/L Anion Gap mmol/L BUN (7-17) mg/dL Creatinine (0.52-1.04) mg/dL Est GFR (CKD-EPI)AfAm (>60 ml/min/1.73 sqM) Est GFR (CKD-EPI)NonAf (>60 ml/min/1.73 sqM) Glucose (74-99) mg/dL Lactic Ac Sepsis Rflx Plasma Lactic Acid Brooks (0.7-2.0) mmol/L Calcium (8.4-10.2) mg/dL Magnesium (1.6-2.3) mg/dL Total Bilirubin (0.2-1.3) mg/dL AST (14-36) U/L ALT (4-34) U/L Alkaline Phosphatase (38-126) U/L Troponin I <0.012 (0.000-0.034) ng/mL Total Protein (6.3-8.2) g/dL Albumin (3.5-5.0) g/dL Amylase (30-110) U/L Lipase (23-300) U/L Urine Color Yellow Urine Appearance Cloudy H (Clear) Urine pH 6.0 (5.0-8.0) Ur Specific [place] 1.026 (1.001-1.035) Urine Protein 1+ H (Negative) Urine Glucose (UA) Negative (Negative) Urine Ketones Negative (Negative) Urine Blood Trace H (Negative) Urine Nitrite Positive H (Negative) Urine Bilirubin Negative (Negative) Urine Urobilinogen 2.0 (<2.0) mg/dL Ur Leukocyte Esterase Small H (Negative) Urine RBC 2 (0-5) /hpf Urine WBC 47 H (0-5) /hpf Ur Squamous Epith Cells 3 (0-4) /hpf Urine Bacteria Moderate H (None) /hpf Hyaline Casts 4 H (0-2) /lpf Urine Mucus Many H (None) /hpf Blood Type A Positive Blood Type Recheck A Pos Bld Type Recheck Status No Antibody Screen NEGATIVE Spec Expiration Date 01/14/2025 - 229901/11/25 Range/Units 15:41 WBC (4.50-10.00) 10*3/uL RBC (4.10-5.20) 10*6/uL Hgb (12.0-15.0) g/dL Hct (37.2-46.3) % MCV (80.0-97.0) fL MCH (27.0-32.0) pg MCHC (32.0-37.0) g/dL Plt Count (140-440) 10*3/uL Immature Gran % (Auto) % Neutrophils % % Lymphocytes % % Monocytes % % Eosinophils % % Basophils % % Immature Gran # (0.00-0.04) 10*3/uL Neutrophils # (1.80-7.70) 10*3/uL Lymphocytes # (0.90-5.00) 10*3/uL Monocytes # (0.20-1.00) 10*3/uL Eosinophils # (0.04-0.35) 10*3/uL Basophils # (0.00-0.10) 10*3/uL Manual Slide Review Immature Plt Fraction (1.1-6.1) % Anisocytosis (manual) Sodium (137-145) mmol/L Potassium (3.5-5.1) mmol/L Chloride (98-107) mmol/L Carbon Dioxide (22-30) mmol/L Anion Gap mmol/L BUN (7-17) mg/dL Creatinine (0.52-1.04) mg/dL Est GFR (CKD-EPI)AfAm (>60 ml/min/1.73 sqM) Est GFR (CKD-EPI)NonAf (>60 ml/min/1.73 sqM) Glucose (74-99) mg/dL Lactic Ac Sepsis Rflx Y Plasma Lactic Acid Brooks (0.7-2.0) mmol/L Calcium (8.4-10.2) mg/dL Magnesium (1.6-2.3) mg/dL Total Bilirubin (0.2-1.3) mg/dL AST (14-36) U/L ALT (4-34) U/L Alkaline Phosphatase (38-126) U/L Troponin I (0.000-0.034) ng/mL Total Protein (6.3-8.2) g/dL Albumin (3.5-5.0) g/dL Amylase (30-110) U/L Lipase (23-300) U/L Urine Color Urine Appearance (Clear) Urine pH (5.0-8.0) Ur Specific [place] (1.001-1.035) Urine Protein (Negative) Urine Glucose (UA) (Negative) Urine Ketones (Negative) Urine Blood (Negative) Urine Nitrite (Negative) Urine Bilirubin (Negative) Urine Urobilinogen (<2.0) mg/dL Ur Leukocyte Esterase (Negative) Urine RBC (0-5) /hpf Urine WBC (0-5) /hpf Ur Squamous Epith Cells (0-4) /hpf Urine Bacteria (None) /hpf Hyaline Casts (0-2) /lpf Urine Mucus (None) /hpf Blood Type Blood Type Recheck Bld Type Recheck Status Antibody Screen Spec Expiration Date - Radiology Data Radiology results: report reviewed, image reviewed Disposition Clinical Impression: UTI (urinary tract infection), Abdominal pain Disposition: HOME SELF-CARE Instructions (If sedation given, give patient instructions): Urinary Tract Infection in Women (ED), Abdominal Pain (ED) Additional Instructions: Return to the emergency department with any new, worsening, or concerning symptoms. Take the antibiotic as prescribed for 7 days. You can take the Bentyl up to 4 times daily to help with abdominal discomfort. You can also take Tylenol for pain relief. Follow-up with your primary care provider in the next couple of days. Prescriptions: Dicyclomine [Bentyl] 20 mg PO QID PRN #30 tablet PRN Reason: Gi Upset cefuroxime axetiL [Ceftin] 500 mg PO BID 7 Days #14 tab Is patient prescribed a controlled substance at d/c from ED?: No Referrals: Natalie Hidalgo MD [Primary Care Provider] - 1-2 days Time of Disposition: 15:59
[2025-01-11] MEDS: MORPHINE SULFATE 4 MG/ML SYRINGE IVP STA (12:01)
[2025-01-11] MEDS: DICYCLOMINE 10 MG/ML 2 ML AMP IM STA (12:02)
[2025-01-11] MEDS: ACETAMINOPHEN IV (For NPO) 1,000 MG in EMPTY BAG 1 BAG IVPB STA (12:46)
[2025-01-11 14:02] LABS: Basophils # (A) 0.02 10*3/uL (0.00-0.10); Basophils % (A) 0.3 %; Eosinophils # (A) 0.01 10*3/uL (0.04-0.35); Eosinophils % (A) 0.2 %; HCT 25.0 % (37.2-46.3); HGB 7.4 g/dL (12.0-15.0); Immature Platelet Fraction 7.5 % (1.1-6.1); Lymphocytes # (A) 0.41 10*3/uL (0.90-5.00); Lymphocytes % (A) 6.6 %; MCH 22.2 pg (27.0-32.0); MCHC 29.6 g/dL (32.0-37.0); MCV 75.1 fL (80.0-97.0); Monocytes # (A) 0.27 10*3/uL (0.20-1.00); Monocytes % (A) 4.3 %; Neutrophils # (A) 5.51 10*3/uL (1.80-7.70); Neutrophils % (A) 88.3 %; RBC 3.33 10*6/uL (4.10-5.20); RDW 21.8 % (11.5-14.5); WBC 6.24 10*3/uL (4.50-10.00)
[2025-01-11 14:14] LABS: Bacteria,Urine Moderate /hpf; Bilirubin,Urine Negative (Negative); Blood,Urine Trace (Negative); Color,Urine Yellow; Glucose,Urine (UA) Negative (Negative); Hyaline Casts,Urine 4 /lpf (0-2); Ketones,Urine Negative (Negative); Leukocyte Esterase,Urine Small (Negative); Mucus,Urine Many /hpf; Nitrite,Urine Positive (Negative); PH, Urine 6.0 (5.0-8.0); Protein,Urine 1+ (Negative); RBC,Urine 2 /hpf (0-5); Specific Gravity,Urine 1.026 (1.001-1.035); Squamous Epithelial Cell,Urine 3 /hpf (0-4); Urobilinogen,Urine 2.0 mg/dL (<2.0); WBC,Urine 47 /hpf (0-5)
[2025-01-11 14:28] LABS: ALT 23 U/L (4-34); AST 45 U/L (14-36); African American GFR (CKD) >90 (>60 ml/min/1.73 sqM); Albumin 3.0 g/dL (3.5-5.0); Alkaline Phosphatase 141 U/L (38-126); Amylase 34 U/L (30-110); Anion Gap 6 mmol/L; Blood Urea Nitrogen 7 mg/dL (7-17); Calcium 8.1 mg/dL (8.4-10.2); Carbon Dioxide 25 mmol/L (22-30); Chloride 107 mmol/L (98-107); Glucose 117 mg/dL (74-99); Lipase 151 U/L (23-300); Magnesium 1.4 mg/dL (1.6-2.3); Non-African American GFR(CKD) >90 (>60 ml/min/1.73 sqM); Potassium 4.0 mmol/L (3.5-5.1); Sodium 138 mmol/L (137-145); Total Protein 5.8 g/dL (6.3-8.2)
[2025-01-11 15:11] LABS: Anisocytosis (M) Present; Platelet Count 90 10*3/uL (140-440)
--- NOTE | 2025-01-11 15:37 | XR ---
EXAMINATION TYPE: XR KUB DATE OF EXAM: 01/11/2025 3:30 PM COMPARISON: 10/29/2013 CLINICAL INDICATION: Female, 64 years old with history of Abdominal pain; PHH, pain TECHNIQUE: One radiographic view of the abdomen was obtained. FINDINGS: Lung bases are clear. No evidence for free intraperitoneal air. Scattered small air-fluid levels throughout the colon. No dilated small bowel loops or differential a ir-fluid levels are seen. A borderline distended small bowel loops right mid abdomen measures 2.9 cm in caliber. No significant stool burden. Large calcification in the right paramedian pelvis measuring 7 cm. This was present back on 2013 favo ring a large calcified fibroid. Cholecystectomy clips. Suspect a couple calcifications left mid abdomen measuring up to 4 mm, possible renal calculi. IMPRESSION: 1. Scattered colonic air-fluid levels suggesting diarrheal state/enteritis or ileus. 2. A couple possible left renal calculi measuring up to 4 mm. 3. No evidence for free air or bowel obstruction. 4. Redemonstrated a large 7 cm calcification in the pelvis. Stability from 2013 favors a large calcif ied uterine fibroid. [facility], Workstation: [email or web address], 01/11/2025 3:34 PM
[2025-01-11] MEDS: MAGNESIUM OXIDE 400 MG TAB PO STA ×2 (15:44→15:45)
[2025-01-11] MEDS: PANTOPRAZOLE 40 MG/10 ML VIAL IVP STA (15:45)
[2025-01-11] MEDS: cefTRIAXone IN SWFI 1,000 MG/10 ML SYRINGE IVP STA (15:46)
[2025-01-11 15:49] VITALS: RESP 19
[2025-01-11 17:06] VITALS: BP 107/56; PULSE 80; TEMP 99
== END 2025-01-11 17:06 | disposition home or self-care (01) ==
LOC: EC 11:06
DX: N39.0 Urinary tract infection, site not specified (principal); E78.5 Hyperlipidemia, unspecified; I10 Essential (primary) hypertension; E11.9 Type 2 diabetes mellitus without complications; Z88.0 Allergy status to penicillin; Z88.2 Allergy status to sulfonamides
CPT/HCPCS: 36415; 93005; 86900; 86901; 80053; 82150; 83605; 83690; 83735; 84484; 85025; 86850; 81001; 87086; 74018; 99285; 96374; 96375; 96372; J0500; J0696; J0131; J2470